=== PATIENT | male | born 1980 | race Caucasian/White ===

== ENCOUNTER 2018-02-27 12:32 | Emergency (ER) | payer OTHER ==
[~2018-02-27] VITALS: Ht 188 cm; Wt 79.4 kg
[2018-02-27] MEDS ORDERED: KEPPRA 500 MG500 M1 PO ×2 (12:45→14:37)
[2018-02-27] MEDS ORDERED: XANAX1 MG PO (12:45)
[2018-02-27] MEDS ORDERED: NORCO 10-325 T1 EACH PO (12:46)
[2018-02-27] MEDS ORDERED: PHENOBARBITAL97.2 MG PO (12:46)
[2018-02-27 12:57] LABS: ABSOLUTE NEUTROPHILS 9.9 thou/uL (1.4-8.2); EOSINOPHILS 0.1 % (0.0-3.0); HEMATOCRIT 38.5 % (42.0-52.0); HEMOGLOBIN 13.3 gm/dL (14.0-18.0); LYMPHOCYTES 3.9 % (24.0-44.0); MCH 30.2 pg (26.0-34.0); MCHC 34.5 g/dL (28.0-37.0); MCV 87.5 fL (80.0-100.0); MONOCYTES 1.5 % (1.0-8.0); PLATELET COUNT 172 thou/uL (150-400); POLYS 94.5 % (36.0-66.0); WBC 10.5 thou/uL (4.0-11.0)
[2018-02-27 13:07] LABS: ANION GAP 12 mmol/L (7-16); BUN 7 mg/dL (7-18); CALCIUM 9.3 mg/dL (8.5-10.1); CHLORIDE 100 mmol/L (98-107); CO2 25 mmol/L (21-32); CREATININE 1.4 mg/dL (0.7-1.3); GLUCOSE 194 mg/dL (74-106); POTASSIUM 3.7 mmol/L (3.5-5.1); SODIUM 137 mmol/L (136-145)
[2018-02-27 13:13] LABS: ALBUMIN 3.8 g/dL (3.4-5.0); MAGNESIUM 1.5 mg/dL (1.8-2.4); SALICYLATE 3.5 mg/dL (2.8-20.0); SGOT 30 U/L (15-37); SGPT 60 U/L (30-65); TOTAL BILIRUBIN 0.7 mg/dL (<0.1-1.0); TOTAL PROTEIN 7.8 g/dL (6.4-8.2)
[2018-02-27 13:23] LABS: URINE BILIRUBIN NEGATIVE (Negative); URINE BLOOD NEGATIVE (Negative); URINE CLARITY CLEAR; URINE COLOR YELLOW; URINE GLUCOSE-RANDOM* NEGATIVE (Negative); URINE KETONES NEGATIVE (Negative); URINE LEUKOCYTES-REFLEX TRACE (Negative); URINE NITRITE-REFLEX NEGATIVE (Negative); URINE PROTEIN (DIPSTICK) NEGATIVE (Negative); URINE SPECIFIC GRAVITY 1.015 (1.005-1.035)
[2018-02-27 13:31] LABS: AMP/METHAMP Negative (Negative); BARBITURATES Negative (Negative); BENZODIAZEPINES POSITIVE (Negative); COCAINE Negative (Negative); METHADONE Negative (Negative); OPIATES POSITIVE (Negative); PCP Negative (Negative)
[2018-02-27 13:35] LABS: BACTERIA-REFLEX None Seen /HPF (None Seen); CASTS None Seen /LPF (None Seen); CRYSTALS None Seen /LPF (None Seen); SQUAMOUS None Seen /LPF (0-3); URINE RBC 0-2 Rare /HPF (0-2); URINE WBC-REFLEX 0-5 Rare /HPF (0-5); YEAST-REFLEX Present (None Seen)
[2018-02-27] MEDS ORDERED: MAG-OXIDE400 MG PO (14:37)
[2018-02-27] MEDS ORDERED: ZOFRAN8 MG PO (14:37)
[2018-02-27 16:00] VITALS: BP 110/64
== END 2018-02-27 15:10 | disposition home or self-care (01) ==
LOC: ER 12:32
PROVIDERS: Emergency Medicine
DX: G40.909 Epilepsy, unspecified, not intractable, without status epilepticus (principal); R50.9 Fever, unspecified; R11.2 Nausea with vomiting, unspecified; E83.42 Hypomagnesemia; Z91.14 Patient's other noncompliance with medication regimen